=== PATIENT | male | born 1965 | race Caucasian/White ===

== ENCOUNTER 2024-07-16 10:36 | Emergency (ER) | payer MEDICARE ==
[2024-07-16] MEDS ORDERED: Sodium Chloride 0.9% 1000 ML 1,000 ML ONE (10:39)
[2024-07-16 11:00] LABS: Absolute Neutrophil Ct (ANC) 5.92 x10^3/uL (1.78-5.38); BASOPHIL % 1.3 % (0.2-1.2); Basophil (Absolute #) 0.15 x10^3/uL (0.01-0.08); Eosinophil % 2.4 % (0.8-7.0); Eosinophil (Absolute #) 0.27 x10^3/uL (0.04-0.54); Hematocrit 38.7 % (40.1-51.0); Hemoglobin 10.2 g/dL (13.7-17.5); IMMATURE GRAN # 0.54 x10^3u/L (0.001-0.031); IMMATURE GRAN % 4.8 % (0.001-0.429); Lymphocyte (Absolute #) 3.68 x10^3/uL (1.32-3.57); Lymphocytes % 32.9 % (21.8-53.1); Mean Cell Volume 85.6 fL (79.0-92.2); Mean Corpuscular Hemoglobin 22.6 pg (25.7-32.2); Mean Corpuscular Hgb Concent. 26.4 g/dL (32.3-36.5); Mean Platelet Volume 11.1 fL (9.4-12.4); Monocyte (Absolute #) 0.62 x10^3/uL (0.30-0.82); Monocytes % 5.5 % (5.3-12.2); NUCLEATED RBC # 0.24 x10^3u/L (0.00-0.012); NUCLEATED RBC % 2.1 % (0.00-0.2); Neutrophil % 53.1 % (34.0-67.9); Platelet Count 253 x10^3/uL (163-337); Red Blood Count 4.52 x10^6/uL (4.63-6.08); Red Cell Distribution Width 17.5 % (11.6-14.4); White Blood Count 11.2 x10^3/uL (4.23-9.07)
[2024-07-16] MEDS ORDERED: SODIUM BICARBONATE 50 MEQ/50 ML ABBOJECT IV ONE (11:00)
[2024-07-16] MEDS ORDERED: Magnesium Sulfate 1 GM/2 ML VIAL ONE (11:00)
[2024-07-16] MEDS ORDERED: EPINEPHRINE ABBOJECT 1 MG/10 ML ONE (11:00)
[2024-07-16 11:06] LABS: BILIRUBIN,TOTAL 0.5 mg/dL (0.2-1.3); Calcium 8.5 mg/dL (8.4-10.2); Creatinine 1 2.49 mg/dL (0.66-1.25); MAGNESIUM 2.7 mg/dL (1.6-2.3); Potassium 4.3 mmol/L (3.5-5.1); Total Protein 7.4 g/dL (6.3-8.2)
--- NOTE | 2024-07-16 11:17 | ERPHSYRPT ---
- History of Present Illness Time Seen by Provider: 07/16/24 10:40 Source: EMS, old records, police Exam Limitations: clinical condition Physician History: This is a morbidly obese 58-year-old white male patient who arrives by paramedics escorted by law enforcement. Patient had an episode of choking then collapsed at home approximately 9:30 AM prior to arrival. Law enforcement arrived at scene and initially began CPR for approximately 15 minutes before the department mgr service arrived. They continued CPR. There was no palpable pulse and no evidence of heart rhythm. Patient received 3 rounds of epinephrine, compressions with Justin device and a single dose of atropine intravenously. The LMA oral intubation was performed. Patient arrived to the emergency department approximately 10:35 AM with his bilateral pupils fixed and dilated, no spontaneous heart tones, no spontaneous breath sounds, asystole on the monitor with a Justin device was not firing and providing compressions. We continued the CPR. Timing/Duration: today Severity: severe Modifying Factors: Improves With: nothing Associated Symptoms: denies symptoms Allergies/Adverse Reactions: No Known Drug Allergies Allergy (Verified 11/02/23 15:41) Home Medications: Albuterol 17 gm IH DAILY 12/10/20 [History] Ibuprofen 800 mg PO DAILY 12/10/20 [History] Metoprolol Succinate 25 mg Xl* [Toprol-Xl 25MG Tablets] 25 mg PO DAILY 12/10/20 [History] Olmesartan Medoxomil 20 mg [Benicar 20 MG] 20 mg PO DAILY 12/10/20 [History] Olmesartan/Hydrochlorothiazide [Olmesartan-Hctz 20-12.5 mg Tab] 1 each PO DAILY 12/10/20 [History] Tramadol HCl 50 mg [Ultram 50 mg] 50 mg PO DAILY 12/10/20 [History] Hx Tetanus, Diphtheria Vaccination/Date Given: No Hx Influenza Vaccination/Date Given: Yes Hx Pneumococcal Vaccination/Date Given: No Travel Risk - International Travel Have you traveled outside of the country in past 3 weeks: No - Emerging Infectious Disease Are you exhibiting symptoms associated with any current EIDs: No - Review of Systems Constitutional: No Symptoms Eyes: Other (Bilateral pupils fixed and dilated) Ears, Nose, & Throat: Other (LMA in place) Respiratory: No Symptoms Cardiac: Other (No spontaneous heart tones) Abdominal/Gastrointestinal: No Symptoms Genitourinary Symptoms: No Symptoms Musculoskeletal: No Symptoms Neurological: Other (Patient unresponsive) Psychological: No Symptoms Endocrine: No Symptoms Hematologic/Lymphatic: No Symptoms Immunological/Allergic: No Symptoms All Other Systems: Reviewed and Negative - Past Medical History Pertinent Past Medical History: Yes Cardiac History: Hypertension Respiratory History: Asthma Endocrine Medical History: Diabetes Type II Other Medical History: freq leg infections - Past Surgical History Past Surgical History: Yes Musculoskeletal: Orthopedic Surgery, Joint Replacement Other Surgical History: L knee. back surgery. R ankle Significant Family History: no pertinent family hx - Social History Smoking Status: Current every day smoker How long have you smoked: years Exposure to second hand smoke: Yes Drug Use: none Patient Lives Alone: No () - Physical Exam General Appearance: obese, other (Bilateral pupils fixed and dilated) Eye Exam: other (Bilateral pupils fixed and dilated) Ears, Nose, Throat Exam: other (Orally intubated with LMA) Neck Exam: normal inspection Respiratory Exam: other (No spontaneous breath sounds) Cardiovascular Exam: other (No spontaneous heart tones) Gastrointestinal/Abdomen Exam: soft, tenderness, other (Obese abdomen) Rectal Exam: not done Extremity Exam: other (Bilateral feet dry but wrapped from mid feet bilaterally and proximally to below the knee.) Neurologic Exam: other (Patient unresponsive) Lymphatic Exam: No adenopathy SpO2 Interpretation: normal O2 Delivery: Room Air - Course Nursing assessment & vital signs reviewed: Yes EKG Interpreted by Me: RATE (61), A-fib, LAFB, Right Bundle Branch Block, Other (Inferior lateral infarct acute anterior infarct acute) Ordered Tests: Active Orders 24 hr Category Date Time Status CBC W DIFF Stat Lab 07/16/24 10:45 Completed CMP Stat Lab 07/16/24 10:45 Results D-DIMER QUANTITATIVE Stat Lab 07/16/24 10:45 Received MAGNESIUM Stat Lab 07/16/24 10:45 Results TROPONIN Stat Lab 07/16/24 10:45 Results Medication Summary Discontinued Medications Generic Name Dose Route Start Last Admin Trade Name Papiq PRN Reason Stop Dose Admin Sodium Chloride Confirm 07/16/24 10:39 Sodium Chloride 0.9% 1000 Ml Administered 07/16/24 10:40 Dose 1,000 mls @ .[facility] Lab/Rad Data: Laboratory Result Diagrams 07/16/24 10:45 07/16/24 10:45 Laboratory Results 07/16/24 07/16/24 Range/Units 10:45 10:45 WBC 11.2 H (4.23-9.07) x10^3/uL RBC 4.52 L (4.63-6.08) x10^6/uL Hgb 10.2 L (13.7-17.5) g/dL Hct 38.7 L (40.1-51.0) % MCV 85.6 (79.0-92.2) fL MCH 22.6 L (25.7-32.2) pg MCHC 26.4 L (32.3-36.5) g/dL RDW 17.5 H (11.6-14.4) % Plt Count 253 (163-337) x10^3/uL MPV 11.1 (9.4-12.4) fL Gran % 53.1 (34.0-67.9) % Immature Gran % (Auto) 4.8 H (0.001-0.429) % Nucleat RBC Rel Count 2.1 H (0.00-0.2) % Eos # (Auto) 0.27 (0.04-0.54) x10^3/uL Immature Gran # (Auto) 0.54 H (0.001-0.031) x10^3u/L Absolute Lymphs (auto) 3.68 H (1.32-3.57) x10^3/uL Absolute Monos (auto) 0.62 (0.30-0.82) x10^3/uL Absolute Nucleated RBC 0.24 H (0.00-0.012) x10^3u/L Lymphocytes % 32.9 (21.8-53.1) % Monocytes % 5.5 (5.3-12.2) % Eosinophils % 2.4 (0.8-7.0) % Basophils % 1.3 H (0.2-1.2) % Absolute Granulocytes 5.92 H (1.78-5.38) x10^3/uL Basophils # 0.15 H (0.01-0.08) x10^3/uL Sodium 144 (135-145) mmol/L Potassium 4.3 (3.5-5.1) mmol/L Chloride 101 (98-107) mmol/L Carbon Dioxide 20 L (22-30) mmol/L Anion Gap 26.0 H (5-15) MEQ/L BUN 38 H (9-20) mg/dL Creatinine 2.49 H (0.66-1.25) mg/dL Estimated GFR 29.0 ML/MIN Glucose 341 H (74-106) mg/dL Calcium 8.5 (8.4-10.2) mg/dL Magnesium 2.7 H (1.6-2.3) mg/dL Total Bilirubin 0.50 (0.2-1.3) mg/dL AST 32 (17-59) U/L ALT 29 (0-50) U/L Alkaline Phosphatase 82 (38-126) U/L Troponin I Pending Serum Total Protein 7.4 (6.3-8.2) g/dL Albumin 4.0 (3.5-5.0) g/dL - Progress Progress: unchanged Progress Note: 07/16/24 11:22 This patient presents to the emergency department with no spontaneous heart tones, no spontaneous breath sounds, bilateral fixed and dilated pupils with no palpable pulse and asystole on the initial rhythm. We continued the CPR providing at least 3 more rounds of epinephrine intravenously, 2 g of magnesium, another round of bicarb. Despite the above treatment, including the knowledge that the patient was down approximately 930 prior to arrival, we stopped CPR at 11:09 AM. The medication was providing various types of rhythm but as soon as the medication wore off patient heart rhythm dropped significantly and rapidly to asystole. (See CPR sheet) the approximate total time (at the scene and in our emergency department) of CPR was a minimum of an hour and 55 minutes. The second twelve-lead EKG was performed at 1104 which shows a heart rate of 31 bpm and a junctional rhythm, right bundle branch block, probable inferior infarct acute. The patient then went into asystole. CPR stopped at 11:09 AM The patient's family was not available or in the emergency room department during this time. Medical Desision Making - Diagnostic Testing Diagnostic test were ordered, analyzed, and reviewed by me: Yes - Departure Departure Disposition: Clinical Impression: Cardiac arrest Condition: Critical Care Time: Yes Critical Care Time(excluding separately billable procedures): Critical 30-74 mins (30) Referrals: [facility] [Primary Care Provider] - Follow up/PCP as directed
[2024-07-16 11:39] LABS: TROPONIN 0.044 ng/mL (0.000-0.033)
[2024-07-16 11:49] LABS: Slide Review 1 YES
[2024-07-16 12:03] VITALS: PULSE 0
== END 2024-07-16 15:03 | disposition expired ==
LOC: ED 10:36
DX: I46.9 Cardiac arrest, cause unspecified (principal); I10 Essential (primary) hypertension; E11.9 Type 2 diabetes mellitus without complications; Z79.899 Other long term (current) drug therapy; Z72.0 Tobacco use
CPT/HCPCS: 36415; 80053; 83735; 84484; 85025; 85379; 93005; 94799; 99283; 99291; J0171; J3475